=== PATIENT | male | born 1995 | race Caucasian/White ===

== ENCOUNTER 2017-02-23 23:54 | Emergency (ER) | payer BC ==
[2017-02-24 00:01] VITALS: RESP 18; TEMP 97.7
--- NOTE | 2017-02-24 00:05 | EDPHY ---
H & P Stated Complaint: syncopal episode, ETOH HPI/ROS: HPI CHIEF COMPLAINT: Syncope, head strike HISTORY OF PRESENT ILLNESS: This patient is a 21-year-old male, otherwise healthy, does have exercise-induced asthma, does not take any daily medications he presents emergency room after he had a syncopal episode. Patient reports he not had anything eat today or drink. However he did drink liquor this evening and smoked marijuana. He states that he got lightheaded and flushed and then had a syncopal episode. This was witnessed by his friend. There is no seizure activity. No bowel bladder incontinence. No biting of his tongue. Did have head strike when he fell. Denies chest pain. Denies shortness of breath. Denies palpitations. Does have a history of syncope x2 other episodes with the same type of scenario of not eating and not drinking and then drinking alcohol and smoking marijuana. He arrived by private vehicle he has no complaints. He Is resting comfortably. Denies headache. Past Medical History: Exercise-induced asthma Past Surgical History: No recent surgery Social History: Endorses alcohol today, as well as marijuana. Denies other illicit drugs or tobacco. Family History: Noncontributory ROS REVIEW OF SYSTEMS: A comprehensive 10 point review of systems is otherwise negative aside from elements mentioned in the history of present illness. Exam Constitutional appears well nontoxic, triage nursing summary reviewed, vital signs reviewed, awake/alert. Eyes normal conjunctivae and sclera, EOMI, PERRLA. HENT normal inspection, atraumatic, moist mucus membranes, no epistaxis, neck supple/ no meningismus, no raccoon eyes. Respiratory clear to auscultation bilaterally, normal breath sounds, no respiratory distress, no wheezing. Cardiovascular rate normal, regular rhythm, no murmur, no edema, distal pulses normal. Gastrointestinal soft, non-tender, no rebound, no guarding, normal bowel sounds, no distension, no pulsatile mass. Genitourinary no CVA tenderness. Musculoskeletal no midline vertebral tenderness, full range of motion, no calf swelling, no tenderness of extremities, no meningismus, good pulses, neurovascularly intact. Skin pink, warm, & dry, no rash, skin atraumatic. Neurologic awake, alert and oriented x 3, AAOx3, moves all 4 extremities equally, motor intact, sensory intact, CN II-XII intact, normal cerebellar, normal vision, normal speech. Psychiatric normal mood/affect. Heme/Lymph/Immune no lymphadenopathy. Differential Diagnosis: Includes but is not limited to in a particular order dehydration, electrolyte disturbance, vasovagal syncope, cardiac arrhythmia, syncope caused by dehydration not eating, ingestion of alcohol and marijuana. 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 Re-evaluation: EKG interpretation by me on record in [employer] system. Impression time of EKG 0017: Sinus bradycardia rate of 44. Otherwise no signs of cardiac arrhythmia. No signs of Brugada or WPW. No signs of acute ischemia on the EKG. CT scan head without contrast negative for acute traumatic injury. Called to me by Dr. Bazan 0155: Patient resting comfortably here no acute distress. Ambulatory well to the bathroom denies any significant complaints. No chest pain shortness of breath. Vital signs are stable. Blood work is reviewed. CT scan is unremarkable EKG nonischemic. No signs of cardiac arrhythmia. Recommend strict return precautions to the patient. Additionally recommend staying well hydrated. Refraining from alcohol marijuana. Return emergency room if there is any worsening symptoms questions or concerns. He understands. Source: Patient - Personal History Current Tetanus/Diphtheria Vaccine: Yes - Medical/Surgical History Hx Asthma: Yes Hx Chronic Respiratory Disease: No Hx Diabetes: No Hx Cardiac Disease: No Hx Renal Disease: No Hx Cirrhosis: No Hx Alcoholism: No Hx HIV/AIDS: No Hx Splenectomy or Spleen Trauma: No Other PMH: seizures, asthma - Social History Smoking Status: Never smoked Constitutional: Initial Vital Signs Temperature (C) 36.5 C 02/23/17 23:56 Heart Rate 54 L 02/23/17 23:56 Respiratory Rate 18 02/23/17 23:56 Blood Pressure 148/65 H 02/23/17 23:56 O2 Sat (%) 97 02/23/17 23:56 O2 Delivery Mode Room Air Allergies/Adverse Reactions: amoxicillin Allergy (Severe, Verified 02/24/17 00:01) Cephalosporins Allergy (Severe, Verified 02/24/17 00:01) Penicillins Allergy (Severe, Verified 02/24/17 00:01) Home Medications: [facility] Medical Decision Making - Data Points Laboratory Results: Laboratory Results 02/24/17 00:16 02/24/17 00:16 02/24/17 02/24/17 02/24/17 01:34 00:16 00:16 WBC 9.49 10^3/uL 10^3/uL (3.80-9.50) RBC 4.44 10^6/uL 10^6/uL (4.40-6.38) Hgb 14.6 g/dL g/dL (13.7-17.5) Hct 41.3 % % (40.0-51.0) MCV 93.0 fL fL (81.5-99.8) MCH 32.9 pg pg (27.9-34.1) MCHC 35.4 g/dL g/dL (32.4-36.7) RDW 11.8 % % (11.5-15.2) Plt Count 382 10^3/uL 10^3/uL (150-400) MPV 9.2 fL fL (8.7-11.7) Neut % (Auto) 48.7 % % (39.3-74.2) Lymph % (Auto) 41.7 % % (15.0-45.0) Hendry % (Auto) 6.7 % % (4.5-13.0) Eos % (Auto) 2.2 % % (0.6-7.6) Baso % (Auto) 0.5 % % (0.3-1.7) Nucleat RBC Rel Count 0.0 % % (0.0-0.2) Absolute Neuts (auto) 4.61 10^3/uL 10^3/uL (1.70-6.50) Absolute Lymphs (auto) 3.96 10^3/uL H 10^3/uL (1.00-3.00) Absolute Monos (auto) 0.64 10^3/uL 10^3/uL (0.30-0.80) Absolute Eos (auto) 0.21 10^3/uL 10^3/uL (0.03-0.40) Absolute Basos (auto) 0.05 10^3/uL 10^3/uL (0.02-0.10) Absolute Nucleated RBC 0.00 10^3/uL 10^3/uL (0-0.01) Immature Gran % 0.2 % % (0.0-1.1) Seg Neutrophils % 46 % % Band Neutrophils % 1 % % Lymphocytes % 40 % % Monocytes % 8 % % Eosinophils % 5 % % Immature Gran # 0.02 10^3/uL 10^3/uL (0.00-0.10) Absolute Seg Neuts 4.37 10^/uL 10^/uL (1.70-6.50) Absolute Band Neuts 0.09 10^3/uL 10^3/uL (0.00-0.70) Absolute Lymphocytes 3.80 10^3/uL H 10^3/uL (1.00-3.00) Absolute Monocytes 0.76 10^3/uL 10^3/uL (0.30-0.80) Absolute Eosinophils 0.47 10^3/uL H 10^3/uL (0.03-0.40) RBC/WBC/PLT Morphology NORMAL (NORMAL) Atypical Lymphocytes 1+ H Platelet Estimate ADEQUATE (ADEQ) Sodium 143 mEq/L mEq/L (134-144) Potassium 3.7 mEq/L mEq/L (3.5-5.2) Chloride 106 mEq/L mEq/L (97-110) Carbon Dioxide 22 mEq/l mEq/l (22-31) Anion Gap 15 mEq/L mEq/L (8-16) BUN 20 mg/dL mg/dL (7-23) Creatinine 1.1 mg/dL mg/dL (0.7-1.3) Estimated GFR > 60 Glucose 167 mg/dL H mg/dL (70-100) Calcium 9.5 mg/dL mg/dL (8.5-10.4) Troponin I < 0.012 ng/mL ng/mL (0.000-0.034) Urine Color YELLOW Urine Appearance HAZY Urine pH 5.0 (5.0-7.5) Ur Specific [place] 1.031 H (1.002-1.030) Urine Protein 1+ H (NEGATIVE) Urine Ketones NEGATIVE (NEGATIVE) Urine Blood NEGATIVE (NEGATIVE) Urine Nitrate NEGATIVE (NEGATIVE) Urine Bilirubin NEGATIVE (NEGATIVE) Urine Urobilinogen NEGATIVE EU EU (0.2-1.0) Ur Leukocyte Esterase NEGATIVE (NEGATIVE) Urine RBC NONE SEEN /hpf /hpf (0-3) Urine WBC 1-3 /hpf /hpf (0-3) Ur Epithelial Cells NONE SEEN /lpf /lpf (NONE-1+) Hyaline Casts 1-5 /lpf /lpf (0-1) Urine Mucus 3+ /lpf H /lpf (NONE-1+) Urine Glucose NEGATIVE (NEGATIVE) Urine Opiates Screen NEGATIVE (NEGATIVE) Urine Barbiturates NEGATIVE (NEGATIVE) Ur Phencyclidine Scrn NEGATIVE (NEGATIVE) Ur Amphetamine Screen NEGATIVE (NEGATIVE) U Benzodiazepines Scrn NEGATIVE (NEGATIVE) Urine Cocaine Screen NEGATIVE (NEGATIVE) U Marijuana (THC) Screen NON-NEGATIVE H (NEGATIVE) Ethyl Alcohol < 10 mg/dL mg/dL (0-10) Medications Given: Discontinued Medications Sodium Chloride (Ns) 1,000 mls @ 0 mls/hr IV EDNOW ONE; Wide Open PRN Reason: Protocol Stop: 02/24/17 00:10 Last Admin: 02/24/17 00:18 Dose: 1,000 mls Departure - Departure Disposition: Home, Routine, Self-Care Clinical Impression: Dehydration Marijuana intoxication Qualifiers: Complication of substance-induced condition: uncomplicated Qualified Code(s): F12.920 - Cannabis use, unspecified with intoxication, uncomplicated Syncope Qualifiers: Syncope type: unspecified Qualified Code(s): R55 - Syncope and collapse Condition: Good Instructions: Dehydration (ED), Syncope (ED) Referrals: NONE *PRIMARY CARE P,. [Primary Care Provider] - As per Instructions
[2017-02-24] MEDS ORDERED: NS 1,000 ML IV ONE (00:09)
--- NOTE | 2017-02-24 00:18 | CPEKG ---
Heart Rate: 44 RR Interval: 1364 P-R Interval: 148 QRSD Interval: 100 QT Interval: 476 QTC Interval: 408 P Eunice: 24 QRS Eunice: 40 T Wave Eunice: 33 EKG Severity - OTHERWISE NORMAL ECG - EKG Impression: SINUS BRADYCARDIA Electronically Signed By: Victor Hugo Brasher 24-Feb-2017 15:16:30
[2017-02-24 00:37] LABS: % IMMATURE GRANULYOCYTES 0.2 % (0.0-1.1); ABSOLUTE IMMATURE GRANULOCYTES 0.02 10^3/uL (0.00-0.10); ADD DIFF? NO; ADD MORPH? NO; ADD SCAN? YES; FRAGMENT RBC FLAG 0 (0-99); HEMATOCRIT 41.3 % (40.0-51.0); HEMOGLOBIN 14.6 g/dL (13.7-17.5); LEFT SHIFT FLG 0 (0-99); LIPEMIA HEMOLYSIS FLAG 90 (0-99); MEAN CELL HEMOGLOBIN 32.9 pg (27.9-34.1); MEAN CELL HEMOGLOBIN CONCENTR. 35.4 g/dL (32.4-36.7); MEAN PLATELET VOLUME 9.2 fL (8.7-11.7); PLATELET CLUMPS FLAG 40 (0-99); PLATELET COUNT 382 10^3/uL (150-400); RED BLOOD CELL COUNT 4.44 10^6/uL (4.40-6.38); RED CELL DISTRIBUTION WIDTH 11.8 % (11.5-15.2)
[2017-02-24 00:39] LABS: ATYPICAL LYMPHOCYTE FLAG 130 (0-99)
[2017-02-24 00:46] LABS: ANION GAP 15 mEq/L (8-16); CALCIUM 9.5 mg/dL (8.5-10.4); CARBON DIOXIDE 22 mEq/l (22-31); CHLORIDE 106 mEq/L (97-110); CREATININE 1.1 mg/dL (0.7-1.3); ETHANOL SERUM < 10 mg/dL (0-10); GLOMERULAR FILTRATION RATE > 60; GLUCOSE 167 mg/dL (70-100); POTASSIUM 3.7 mEq/L (3.5-5.2); SODIUM 143 mEq/L (134-144)
[2017-02-24 00:58] LABS: TROPONIN I < 0.012 ng/mL (0.000-0.034)
[2017-02-24 01:07] LABS: SCAN POSITIVE
[2017-02-24 01:15] LABS: PLATELET ESTIMATE ADEQUATE (ADEQ)
[2017-02-24 01:42] LABS: COLOR YELLOW; LEUKOCYTE ESTERASE,URINE NEGATIVE (NEGATIVE); NITRITE,URINE NEGATIVE (NEGATIVE)
[2017-02-24 01:46] LABS: MUCUS 3+ /lpf (NONE-1+)
[2017-02-24 01:48] LABS: RBC,URINE NONE SEEN /hpf (0-3)
[2017-02-24 02:06] VITALS: BP 127/47; PULSE 61; O2SAT 96
== END 2017-02-24 02:07 | disposition home or self-care (01) ==
DX: R55 Syncope and collapse (principal); E86.0 Dehydration; F12.920 Cannabis use, unspecified with intoxication, uncomplicated; J45.909 Unspecified asthma, uncomplicated
CPT/HCPCS: 80305; G0480